=== PATIENT | female | born 1950 | race Caucasian/White ===

== ENCOUNTER 2020-06-02 06:03 | Outpatient (REF) | payer MEDICARE, SELFPAY ==
[2020-06-02 11:34] LABS: Alanine Aminotransferase 16 U/L (0-31); Anion Gap 13 (12-20); Aspartate Amino Transferase 19 U/L (5-31); Blood Urea Nitrogen 17 mg/dL (9-16); Calcium 9.3 mg/dL (8.4-10.2); Carbon Dioxide 28 mmol/L (22-29); Chloride 103 mmol/L (96-108); Cholesterol 188 mg/dL; Estimated Glomerular Filt Rate > 60; Glucose Fasting 87 mg/dL (60-99); HDL Cholesterol 47 mg/dL; LDL Cholesterol Calculated 120 mg/dl; Potassium 4.1 mmol/l (3.3-5.1); Sodium 140 mmol/L (135-145); Triglycerides 106 mg/dL
[2020-06-02 11:55] LABS: Vitamin D 25-OH Total 56.1 ng/mL (>30)
== END 2020-06-02 06:04 | disposition home or self-care (01) ==
LOC: HO.HMGCLDS 06:03
PROVIDERS: PCP Internal Medicine; Visit Provider Internal Medicine
DX: E78.5 Hyperlipidemia, unspecified (principal); I10 Essential (primary) hypertension; F41.9 Anxiety disorder, unspecified; E66.09 Other obesity due to excess calories; M85.80 Other specified disorders of bone density and structure, unspecified site; Z68.33 Body mass index [BMI] 33.0-33.9, adult
CPT/HCPCS: 80048; 80061; 82306; 84450; 84460

== ENCOUNTER 2020-06-17 08:58 | Outpatient (REF) | payer MEDICARE, SELFPAY ==
--- NOTE | 2020-06-17 09:05 | MM_ITS ---
EXAMINATION: BONE DENSITOMETRY CLINICAL INDICATION: Osteopenia. COMPARISON: Previous BD dated 06/15/2018 and baseline BD dated 03/12/2009. TECHNIQUE: Using a [employer] DXA System (software version: 13.1) manufactured by [employer], dual-energy x-ray absorptiometry was performed of the lumbar spine and left hip. The images are of good technical quality. Summary results are attached. FINDINGS: AP SPINE L1-L4: Current: BMD 1.278 g/cm2, Z-score 2.0, T-score 0.8, normal, 1.7% increase from previous, 5.3% increase from baseline (<5% change is not significant). Prior: BMD 1.257 g/cm2. Baseline: BMD 1.214 g/cm2. LEFT FEMUR, NECK: Current: BMD 0.780 g/cm2, Z-score -0.5, T-score -1.9, osteopenia. Prior: BMD 0.850 g/cm2. Baseline: BMD 0.877 g/cm2. LEFT FEMUR, TOTAL: Current: BMD 0.952 g/cm2, Z-score 0.7, T-score -0.4, normal, 0.4% increase from previous, 5.6% decrease from baseline (<5% change is not significant). Prior: BMD 0.948 g/cm2. Baseline: BMD 1.008 g/cm2. IDENTIFIED RISK FACTORS: Height loss, thiazide, menopause. HISTORY OF FRACTURE: None listed. MEDICATIONS: Multivitamin, Vitamin D. MM/XR DEXA axial skeleton IMPRESSION: 1. DIAGNOSIS: Osteopenia based on the lowest T-score value of -1.9 in the femoral neck applying World Health Organization criteria. 2. 10-YEAR FRACTURE RISK PREDICTION, FRAX: Major osteoporotic fracture (clinical spine, forearm, hip or shoulder) 10.5%. Hip fracture 1.8%. 3. Treatment Recommendations: NOF guidelines recommend consideration for treatment in postmenopausal women and men age 50 and older presenting with the following: -A hip or vertebral (clinical or morphometric) fracture. -T-score less than or equal to -2.5 at the femoral neck or spine after appropriate evaluation to exclude secondary causes. -Low bone mass at the hip or spine and a 10-year fracture probability by FRAX of greater than or equal to 3% for hip fracture or greater than or equal to 20% for major osteoporotic fracture based on the [place] adapted WHO algorithm. 4. Other Recommendations: All treatment decisions require clinical judgment and consideration of individual patient factors, including patient preferences, comorbidities, previous drug use, risk factors not captured in the FRAX model (e.g. frailty, falls, vitamin D deficiency, increased bone turnover, interval significant decline in bone density) and possible under or overestimation of fracture risk by FRAX. Additional medical evaluation for secondary cause of low bone mineral density may be appropriate. FUTURE SCAN RECOMMENDATION: People with diagnosed cases of osteoporosis or at high risk for fracture should have regular bone mineral density tests. For patients eligible for Medicare, routine testing is allowed once every 2 years. The testing frequency can be increased to one year for patients who have rapidly progressing disease, those who are receiving or discontinuing medical therapy to restore bone mass, or have additional risk factors.
--- NOTE | 2020-06-17 09:05 | MM_ITS ---
EXAMINATION: MM SCREENING DIGITAL BREAST TOMOSYNTHESIS, BILATERAL CLINICAL INFORMATION: Screening. Asymptomatic. The lifetime risk of breast cancer based on the Tyrer-Cuzick Model is 6.9%. COMPARISON: Mammography: June 16, 2019 and studies dating back to May 20, 2012 TECHNIQUE: Digital breast tomosynthesis is performed in both the craniocaudal and mediolateral oblique views along with computer-aided detection (CAD). Synthesized 2D images are generated from the tomosynthesis. FINDINGS: There are scattered areas of fibroglandular density (ACR BI-RADS breast composition Category b). There are no significant masses, abnormal calcifications, or other abnormalities. MM/MM tomosynthesis screening BI IMPRESSION: There are no significant changes from prior study. ASSESSMENT: BI-RADS 1: Negative RECOMMENDATION: Routine annual mammography screening. This patient's information was entered into a reminder system with a target due date for their next mammogram.
== END 2020-06-17 08:59 | disposition home or self-care (01) ==
LOC: HO.MAMMO 08:58
PROVIDERS: PCP Internal Medicine; Visit Provider Internal Medicine
DX: Z13.820 Encounter for screening for osteoporosis (principal); M85.80 Other specified disorders of bone density and structure, unspecified site; Z78.0 Asymptomatic menopausal state; Z79.899 Other long term (current) drug therapy; Z12.31 Encounter for screening mammogram for malignant neoplasm of breast
CPT/HCPCS: 77063; 77067; 77080

== ENCOUNTER 2020-11-28 06:01 | Outpatient (REF) | payer MEDICARE, SELFPAY ==
[2020-11-28 11:58] LABS: Alanine Aminotransferase 17 U/L (0-31); Anion Gap 14 (12-20); Aspartate Amino Transferase 20 U/L (5-31); Blood Urea Nitrogen 18 mg/dL (9-16); Calcium 9.4 mg/dL (8.4-10.2); Carbon Dioxide 30 mmol/L (22-29); Chloride 102 mmol/L (96-108); Cholesterol 230 mg/dL; Estimated Glomerular Filt Rate > 60; Glucose Fasting 88 mg/dL (60-99); HDL Cholesterol 50 mg/dL; LDL Cholesterol Calculated 152 mg/dl; Potassium 4.3 mmol/L (3.3-5.1); Sodium 142 mmol/L (135-145); Triglycerides 141 mg/dL
== END 2020-11-28 06:02 | disposition home or self-care (01) ==
LOC: HO.HMGCLDS 06:01
PROVIDERS: PCP Internal Medicine; Visit Provider Internal Medicine
DX: Z00.01 Encounter for general adult medical examination with abnormal findings (principal); E78.5 Hyperlipidemia, unspecified; F41.8 Other specified anxiety disorders; I10 Essential (primary) hypertension; M85.859 Other specified disorders of bone density and structure, unspecified thigh; Z78.0 Asymptomatic menopausal state
CPT/HCPCS: 36415; 80048; 80061; 82306; 84450; 84460

== ENCOUNTER 2021-06-02 06:01 | Outpatient (REF) | payer MEDICARE, SELFPAY ==
[2021-06-02 12:04] LABS: Alanine Aminotransferase 15 U/L (0-31); Anion Gap 11 (12-20); Aspartate Amino Transferase 20 U/L (5-31); Blood Urea Nitrogen 17 mg/dL (9-16); Calcium 9.5 mg/dL (8.4-10.2); Carbon Dioxide 29 mmol/L (22-29); Chloride 103 mmol/L (96-108); Cholesterol 194 mg/dL; Estimated Glomerular Filt Rate > 60; Glucose Fasting 88 mg/dL (60-99); HDL Cholesterol 46 mg/dL; LDL Cholesterol Calculated 107 mg/dl; Potassium 4.4 mmol/L (3.3-5.1); Sodium 139 mmol/L (135-145); Triglycerides 207 mg/dL
[2021-06-02 12:18] LABS: Vitamin D 25-OH Total 56.7 ng/mL (>30)
== END 2021-06-02 06:02 | disposition home or self-care (01) ==
LOC: HO.HMGCLDS 06:01
PROVIDERS: PCP Internal Medicine; Visit Provider Internal Medicine
DX: E78.5 Hyperlipidemia, unspecified (principal); F41.8 Other specified anxiety disorders; I10 Essential (primary) hypertension; M85.852 Other specified disorders of bone density and structure, left thigh; Z78.0 Asymptomatic menopausal state
CPT/HCPCS: 36415; 80048; 80061; 82306; 84450; 84460

== ENCOUNTER 2021-06-19 09:20 | Outpatient (REF) | payer MEDICARE, SELFPAY | END 2021-06-19 09:21 | disposition home or self-care (01) | LOC: HO.MAMMO 09:20 | PROVIDERS: Visit Provider Internal Medicine | DX: Z13.89 Encounter for screening for other disorder (principal) ==

== ENCOUNTER 2021-06-25 | Outpatient (REF) | payer MEDICARE, SELFPAY ==
[2021-06-26 12:00] LABS: FIT Int Ctl YES; FIT1 NEGATIVE (NEGATIVE); FIT2 NEGATIVE (NEGATIVE)
== END 2021-06-25 00:01 | disposition home or self-care (01) ==
LOC: HO.LNP
PROVIDERS: Visit Provider Internal Medicine
DX: Z12.11 Encounter for screening for malignant neoplasm of colon (principal)
CPT/HCPCS: 82274

== ENCOUNTER 2021-07-28 09:22 | Outpatient (REF) | payer MEDICARE, SELFPAY ==
--- NOTE | ~2021-07-28 | MM_ITS ---
EXAMINATION: MM SCREENING DIGITAL BREAST TOMOSYNTHESIS, BILATERAL CLINICAL INFORMATION: Screening. Asymptomatic. The lifetime risk of breast cancer based on the Tyrer-Cuzick Model is 4%. COMPARISON: Mammography: 06/17/2020, 06/16/2019, 06/15/2018 TECHNIQUE: Digital breast tomosynthesis is performed in both the craniocaudal and mediolateral oblique views along with computer-aided detection (CAD). Synthesized 2D images are generated from the tomosynthesis. FINDINGS: There are scattered areas of fibroglandular density (ACR BI-RADS breast composition Category b). Parenchymal pattern is similar to prior studies. There is fine fibronodular parenchymal pattern. No interval dominant nodule or developing density. Small circumscribed nodule with a few punctate calcifications anterior 6:00 left breast is stable. The axilla and skin contours are unremarkable. MM/MM tomosynthesis screening BI IMPRESSION: No mammographic evidence of malignancy. ASSESSMENT: BI-RADS 2: Benign RECOMMENDATION: Routine annual mammography screening. This patient's information was entered into a reminder system with a target due date for their next mammogram.
== END 2021-07-28 09:23 | disposition home or self-care (01) ==
LOC: HO.MAMMO 09:22
PROVIDERS: Visit Provider Internal Medicine
DX: Z12.31 Encounter for screening mammogram for malignant neoplasm of breast (principal)
CPT/HCPCS: 77063; 77067

== ENCOUNTER 2021-12-02 06:16 | Outpatient (REF) | payer MEDICARE, SELFPAY ==
[2021-12-02 12:13] LABS: Alanine Aminotransferase 17 U/L (0-31); Anion Gap 13 (12-20); Aspartate Amino Transferase 19 U/L (5-31); Blood Urea Nitrogen 14 mg/dL (9-16); Calcium 9.8 mg/dL (8.4-10.2); Carbon Dioxide 28 mmol/L (22-29); Chloride 104 mmol/L (96-108); Cholesterol 217 mg/dL; Estimated Glomerular Filt Rate > 60; Glucose Fasting 93 mg/dL (60-99); HDL Cholesterol 50 mg/dL; LDL Cholesterol Calculated 128 mg/dl; Potassium 4.7 mmol/L (3.3-5.1); Sodium 140 mmol/L (135-145); Triglycerides 196 mg/dL; Vitamin D 25-OH Total 58.7 ng/mL (>30)
== END 2021-12-02 06:17 | disposition home or self-care (01) ==
LOC: HO.HMGCLDS 06:16
PROVIDERS: PCP Internal Medicine; Visit Provider Internal Medicine
DX: Z00.01 Encounter for general adult medical examination with abnormal findings (principal); E78.5 Hyperlipidemia, unspecified; I10 Essential (primary) hypertension; M85.852 Other specified disorders of bone density and structure, left thigh; Z78.0 Asymptomatic menopausal state
CPT/HCPCS: 36415; 80048; 80061; 82306; 84450; 84460

== ENCOUNTER 2022-06-07 06:09 | Outpatient (REF) | payer MEDICARE, SELFPAY ==
[2022-06-07 12:32] LABS: Alanine Aminotransferase 16 U/L (0-31); Anion Gap 17 (12-20); Aspartate Amino Transferase 22 U/L (5-31); Blood Urea Nitrogen 15 mg/dL (9-16); Calcium 9.6 mg/dL (8.4-10.2); Carbon Dioxide 27 mmol/L (22-29); Chloride 101 mmol/L (96-108); Cholesterol 186 mg/dL; Estimated Glomerular Filt Rate > 60; Glucose Fasting 96 mg/dL (60-99); HDL Cholesterol 41 mg/dL; LDL Cholesterol Calculated 120 mg/dl; Potassium 4.5 mmol/L (3.3-5.1); Sodium 140 mmol/L (135-145); Triglycerides 126 mg/dL; Vitamin D 25-OH Total 50.6 ng/mL (>30)
== END 2022-06-07 06:10 | disposition home or self-care (01) ==
LOC: HO.HMGCLDS 06:09
PROVIDERS: PCP Internal Medicine; Visit Provider Internal Medicine
DX: I10 Essential (primary) hypertension (principal); M85.859 Other specified disorders of bone density and structure, unspecified thigh; N95.9 Unspecified menopausal and perimenopausal disorder; E78.5 Hyperlipidemia, unspecified
CPT/HCPCS: 36415; 80048; 80061; 82306; 84450; 84460

== ENCOUNTER 2022-07-29 09:06 | Outpatient (REF) | payer MEDICARE, SELFPAY ==
--- NOTE | ~2022-07-29 | MM_ITS ---
EXAMINATION: BONE DENSITOMETRY CLINICAL INDICATION: Other specified disorders of bone density and structure. COMPARISON: Previous BD dated 06/17/2020 and baseline BD dated 03/12/2009. TECHNIQUE: Using a [employer] DXA System (software version: 13.1) manufactured by [employer], dual-energy x-ray absorptiometry was performed of the lumbar spine and left hip. The images are of good technical quality. Summary results are attached. FINDINGS: AP SPINE L1-L4 (excluding L3): The data of L1-L4 has been changed to exclude the L3 vertebral body, because degenerative changes at this level may cause overestimation of lumbar spine density. Current: BMD 1.204 g/cm2, Z-score 1.4, T-score 0.3, normal, 2.4% decrease from previous, 1.7% increase from baseline (<5% change is not significant). Prior: BMD 1.234 g/cm2. Baseline: BMD 1.184 g/cm2. LEFT FEMUR, NECK: Current: BMD 0.817 g/cm2, Z-score -0.2, T-score -1.6, osteopenia. Prior: BMD 0.780 g/cm2. Baseline: BMD 0.877 g/cm2. LEFT FEMUR, TOTAL: Current: BMD 0.895 g/cm2, Z-score 0.3, T-score -0.9, normal, 6.0% decrease from previous, 11.2% decrease from baseline (<5% change is not significant). Prior: BMD 0.952 g/cm2. Baseline: BMD 1.008 g/cm2. IDENTIFIED RISK FACTORS: Early menopause, secondary osteoporosis, low calcium intake, thiazide. HISTORY OF FRACTURE: None listed. MEDICATIONS: Calcium supplements or multivitamin, vitamin D. MM/XR DEXA axial skeleton IMPRESSION: 1. DIAGNOSIS: Osteopenia based on the lowest T-score value of -1.6 in the femoral neck applying World Health Organization criteria. 2. 10-YEAR FRACTURE RISK PREDICTION, FRAX: Major osteoporotic fracture (clinical spine, forearm, hip or shoulder) 10.0%. Hip fracture 1.6%. 3. Treatment Recommendations: NOF guidelines recommend consideration for treatment in postmenopausal women and men age 50 and older presenting with the following: -A hip or vertebral (clinical or morphometric) fracture. -T-score less than or equal to -2.5 at the femoral neck or spine after appropriate evaluation to exclude secondary causes. -Low bone mass at the hip or spine and a 10-year fracture probability by FRAX of greater than or equal to 3% for hip fracture or greater than or equal to 20% for major osteoporotic fracture based on the [place] adapted WHO algorithm. 4. Other Recommendations: All treatment decisions require clinical judgment and consideration of individual patient factors, including patient preferences, comorbidities, previous drug use, risk factors not captured in the FRAX model (e.g. frailty, falls, vitamin D deficiency, increased bone turnover, interval significant decline in bone density) and possible under or overestimation of fracture risk by FRAX. Additional medical evaluation for secondary cause of low bone mineral density may be appropriate. FUTURE SCAN RECOMMENDATION: People with diagnosed cases of osteoporosis or at high risk for fracture should have regular bone mineral density tests. For patients eligible for Medicare, routine testing is allowed once every 2 years. The testing frequency can be increased to one year for patients who have rapidly progressing disease, those who are receiving or discontinuing medical therapy to restore bone mass, or have additional risk factors.
--- NOTE | ~2022-07-29 | MM_ITS ---
EXAMINATION: MM SCREENING DIGITAL BREAST TOMOSYNTHESIS, BILATERAL CLINICAL INFORMATION: Screening. Asymptomatic. The lifetime risk of breast cancer based on the Tyrer-Cuzick Model is 3.5%. COMPARISON: Mammography: July 28, 2021 and studies dating back to June 11, 2016 TECHNIQUE: Digital breast tomosynthesis is performed in both the craniocaudal and mediolateral oblique views along with computer-aided detection (CAD). Synthesized 2D images are generated from the tomosynthesis. FINDINGS: There are scattered areas of fibroglandular density (ACR BI-RADS breast composition Category b). There are no significant masses, abnormal calcifications, or other abnormalities. MM/MM tomosynthesis screening BI IMPRESSION: No significant changes from prior exam. ASSESSMENT: BI-RADS 1: Negative RECOMMENDATION: Routine annual mammography screening. This patient's information was entered into a reminder system with a target due date for their next mammogram.
== END 2022-07-29 09:07 | disposition home or self-care (01) ==
LOC: HO.MAMMO 09:06
PROVIDERS: Visit Provider Internal Medicine
DX: Z12.31 Encounter for screening mammogram for malignant neoplasm of breast (principal); Z13.820 Encounter for screening for osteoporosis; Z78.0 Asymptomatic menopausal state; M85.852 Other specified disorders of bone density and structure, left thigh
CPT/HCPCS: 77063; 77067; 77080

== ENCOUNTER 2022-12-03 06:07 | Outpatient (REF) | payer MEDICARE, SELFPAY ==
[2022-12-03 12:23] LABS: Alanine Aminotransferase 17 U/L (0-31); Anion Gap 17 (12-20); Aspartate Amino Transferase 18 U/L (5-31); Blood Urea Nitrogen 13 mg/dL (9-16); Calcium 9.6 mg/dL (8.4-10.2); Carbon Dioxide 27 mmol/L (22-29); Chloride 105 mmol/L (96-108); Cholesterol 210 mg/dL; Estimated Glomerular Filt Rate > 60; Glucose Fasting 98 mg/dL (60-99); HDL Cholesterol 40 mg/dL; LDL Cholesterol Calculated 139 mg/dl; Potassium 5.2 mmol/L (3.3-5.1); Sodium 144 mmol/L (135-145); Triglycerides 158 mg/dL
[2022-12-03 12:42] LABS: Vitamin D 25-OH Total 60.8 ng/mL (>30)
== END 2022-12-03 06:08 | disposition home or self-care (01) ==
LOC: HO.HMGCLDS 06:07
PROVIDERS: PCP Internal Medicine; Visit Provider Internal Medicine
DX: M85.852 Other specified disorders of bone density and structure, left thigh (principal); E78.5 Hyperlipidemia, unspecified; I10 Essential (primary) hypertension; N95.9 Unspecified menopausal and perimenopausal disorder
CPT/HCPCS: 36415; 80048; 80061; 82306; 84450; 84460

== ENCOUNTER 2023-06-08 06:14 | Outpatient (REF) | payer MEDICARE, SELFPAY ==
[2023-06-08 11:43] LABS: MANUAL DIFF FLAG NO
[2023-06-08 12:03] LABS: Basophils Absolute Auto 0.1 X10*3/uL (0.0-0.2); Eosinophils Absolute Auto 0.2 X10*3/uL (0.0-0.4); Eosinophils Percent Auto 2.2 % (0-4); Hematocrit 40.9 % (37.0-47.0); Hemoglobin 13.7 g/dl (12.0-16.0); Imm Gran Abs Auto 0.01 X10*3/uL (0.00-0.03); Imm Gran Pct Auto 0.1 % (0.0-0.4); Lymphocytes Absolute Auto 1.3 X10*3/uL (1.2-4.9); Lymphocytes Percent Auto 19.2 % (20-40); Mean Corpuscular HGB Conc 33.5 g/dl (31.0-35.0); Mean Corpuscular Hemoglobin 30.7 pg (27.0-33.0); Mean Corpuscular Volume 91.7 fL (80.0-98.0); Mean Platelet Volume 8.9 fL (9.4-12.3); Monocytes Absolute Auto 0.7 X10*3/uL (0.1-1.2); Monocytes Percent Auto 10.4 % (2-11); Neutrophils Absolute Auto 4.5 x10*3/uL (2.0-8.3); Neutrophils Percent Auto 67.1 % (45-73); Platelet Count 274 X10*3/uL (160-400); Red Blood Count 4.46 X10*6/uL (4.20-5.50); Red Cell Distribution Width 12.1 % (11.0-16.0); White Blood Count 6.8 X10*3/uL (4.8-10.8)
[2023-06-08 12:52] LABS: Anion Gap 17 (12-20); Blood Urea Nitrogen 14 mg/dL (9-16); Carbon Dioxide 28 mmol/L (22-29); Chloride 95 mmol/L (96-108); Cholesterol 206 mg/dL (<200); Estimated Glomerular Filt Rate > 60; Glucose Fasting 97 mg/dL (60-99); HDL Cholesterol 52 mg/dL (>40); LDL Cholesterol Calculated 123 mg/dL (<100); Potassium 4.5 mmol/L (3.3-5.1); Sodium 135 mmol/L (135-145); Triglycerides 159 mg/dL (<150); Vitamin D 25-OH Total 65.1 ng/mL (>30)
== END 2023-06-08 06:15 | disposition home or self-care (01) ==
LOC: HO.HMGCLDS 06:14
PROVIDERS: PCP Internal Medicine; Visit Provider Internal Medicine
DX: M85.859 Other specified disorders of bone density and structure, unspecified thigh (principal); E78.5 Hyperlipidemia, unspecified; I10 Essential (primary) hypertension; F41.8 Other specified anxiety disorders; Z78.0 Asymptomatic menopausal state
CPT/HCPCS: 36415; 80048; 80061; 82306; 85025

== ENCOUNTER 2023-07-14 08:45 | Outpatient (AMB) | payer MEDICARE, SELFPAY ==
--- NOTE | 2023-07-14 09:02 | A.OFFPC_ITS ---
<Statement entered by Janis Almaraz MD - 12/19/24 15:27> This note has been administratively?closed. Vital Signs 07/14/23 09:04 Height 5 ft 1 in Weight 174 lb 8 oz BMI 33.0 BP 148/86 H Blood Pressure Location Lt brachial Position Sitting Pulse 89 Pulse Source Pulse Oximeter Pulse Oximetry (%) 98 Oxygen Delivery Method Room Air Intake Visit Reasons: Annual Physical Intake Note: Pt is here for her Annual PE Allergies lisinopril [LISINOPRIL] Allergy (Intermediate, Verified 07/14/23 09:07) cough Polyethylene Glycol 3350 Adverse Reaction (Unknown, Uncoded 07/14/23 09:07) nausea and vomiting Tobacco use date assessed: 07/14/23 Fall risk assessment: 1 Fall in past year Last assessed Fall Risk: 07/14/23 Dental Screening Dental Screen Date: 07/14/23 Did you have a dental visit in the last 12 months?: Yes Did you have a dental problem in the last 6 months where you did not have access to dental care?: No Was dental information given to patient?: Patient has dentist [facility] Medical History Depression with anxiety Dyslipidemia Essential hypertension Osteopenia of hip Surgical History No pertinent past surgical history Family History Father HTN (hypertension) CHF (congestive heart failure) Hyperlipidemia Mother Renal cell cancer Sister Alcoholism Cirrhosis Substance use disorder Social History Housing: House Alcohol intake: current Patient Tobacco Use Status: Never used Tobacco e-Cigarette/Vaping Use: Never Used Current occupational status: retired Cognitive needs: No Hearing needs: No Vision needs: Yes Questionnaire Thrive Questionnaire Date Thrive assessed: 06/14/22 YOLI-7 AMB Questionnaire YOLI-7 Date YOLI - 7 assessed: 12/10/22 Source: Developed by Drs. Edison Alcantara, Loren Romo, Ronaldo Moore and colleagues, with an educational aspen from [employer]. Review of Systems Const Denies body aches, Reports difficulty sleeping (Occasional), Denies fatigue, Denies fever(s), Denies headache(s) and Denies weakness Eyes Details: Sees Dr. Manning Denies change in vision, Denies eye discharge and Denies itchy eyes ENT Reports Normal hearing present, Denies dizziness, Denies headache(s), Denies nasal congestion, Denies nasal discharge and Denies sore throat Card Denies chest pain, Denies lightheadedness, Denies palpitations and Denies dyspnea Resp Denies chest congestion, Denies cough, Denies dyspnea and Denies wheezing GI Denies abdominal pain, Denies change in bowel habits and Denies heartburn Musc Denies myalgias, Denies arthralgias, Denies joint swelling and Reports stiffness Neuro Reports Normal hearing present, Denies dizziness, Denies headache(s), Denies Sensory deficit (Neuro) and Denies weakness Psych Reports as per HPI Endo Denies fatigue, Denies polydipsia, Denies polyuria and Denies palpitations Oj/Lymph Denies easy bruising Aller/Immun Denies itchy eyes, Denies seasonal rhinorrhea and Denies wheezing Physical exam (Primary Care) Vital Signs: Last Vital Signs Pulse 89 07/14/23 09:04 BP 148/86 H 07/14/23 09:04 Pulse Ox 98 07/14/23 09:04 Oxygen Delivery Method Room Air 07/14/23 09:04 BMI result Body Mass Index 33.0 BMI Assessment/Plan discussion: High BMI High, discussed plan: lifestyle, weight reduction, dietary and physical activity Tobacco/Smoking Status: Tobacco use Status Tobacco use date assessed 07/14/23 07/14/23 09:11 Patient Tobacco Use Status Never used Tobacco 07/14/23 09:02 e-Cigarette/Vaping Use Never Used 07/14/23 09:02 Thrive Assessment: Date of Thrive Assessment Date Thrive assessed 06/14/22 07/14/23 09:02 Advance Care Planning discussion: On file, no changes Date of discussion: 07/14/23 Who was present: Patient Forms completed: MOLST Time spent: 1-15 minutes, on File Actual minutes spent: 15 Const General: comfortable and no acute distress HENMT Mouth: Normal oral and palatal mucosa present, oropharynx normal and moist mucous membranes Eyes General: appearance normal, both eyes and all related structures Neck Neck: Yes full ROM, Yes no lymphadenopathy and Yes supple Resp Auscultation: clear to auscultation bilaterally Cardio Rate: regular rate Rhythm: regular rhythm Heart sounds: S1 normal heart sound present and S2 normal heart sound present GI Palpation (GI): Soft to palpation, nontender and no guarding Auscultation: normal bowel sounds General: Yes no CVA tenderness Back/Spine/Pelvis Back: no CVA tenderness and No back tenderness Neuro Cranial nerves: Yes Normal hearing present Sensory Exam: No Sensory deficit (Neuro) Extrem General: Yes full ROM, Yes no joint enlargement, Yes no pedal edema and Yes normal gait Psych Appearance: grossly normal and well kempt Mental Status: mental status grossly normal Speech and movement: Normal speech and movement present Affect: normal affect Attitude: cooperative Thought content: Normal thought content present Results Reviewed Results Reviewed: ENTERED: 06/08/23 [facility] DR: ORDERED: CBC Auto Diff Test Result Flag Reference Site WBC 6.8 4.8-10.8 X10*3/uL RBC 4.46 4.20-5.50 X10*6/uL HGB 13.7 12.0-16.0 g/dl HCT 40.9 37.0-47.0 % MCV 91.7 80.0-98.0 fL MCH 30.7 27.0-33.0 pg MCHC 33.5 31.0-35.0 g/dl RDW 12.1 11.0-16.0 % PLT 274 160-400 X10*3/uL SPEC : [id number] RAMSEY: 06/08/23 STATUS: COMP REQ : [id number] RECD: 06/08/[address]: Janis Almaraz MD COMP: 06/08/23 ENTERED: 06/08/23 [facility] [address]: ORDERED: Met Prof Fast, Lipid Panel, Vitamin D 25-OH Test Result Flag Reference Site Sodium 135 135-145 mmol/L Potassium 4.5 3.3-5.1 mmol/L CL 95 L 96-108 mmol/L CO2 28 22-29 mmol/L Gap 17 12-20 BUN 14 9-16 mg/dL Creat 0.84 0.5-1.4 mg/dL EGFR > 60 NOTE: For -[place] individuals, multiply the result by 1.210. Chronic Kidney Disease: Estimated GFR < 60 mL/min/1.73m2 Severe Kidney Disease: Estimated GFR < 15 mL/min/1.73m2 FBS 97 60-99 mg/dL CA 10.0 8.4-10.2 mg/dL Triglyceride 159 H <150 mg/dL Desirable Triglyceride: less than 150 mg/dL Borderline High Triglyceride 150-199 mg/dL High Triglyceride: 200-499 mg/dL Very High Triglyceride: greater than or equal to 5OO mg/dL Cholesterol 206 H <200 mg/dL Desirable Cholesterol: less than 200 mg/dL Borderline High Cholesterol: 200-239 mg/dL High Cholesterol: greater than 239 mg/dL LDL Calculated 123 H <100 mg/dL Desirable LDL: less than 100 mg/dL Near Optimal/Above Optimal LDL: 110-129 mg/dL Borderline High LDL: 130-159 mg/dL High LDL: 160-189 mg/dL Very High LDL: greater than or equal to 190 mg/dL HDL 52 >40 mg/dL Desirable HDL: greater than 40 mg/dL Note: This HDL assay may give artificially low results in patients with liver disease. Vit D 25-OH Tot 65.1 >30 ng/mL Health Based Reference Values* < 20 ng/mL Deficient 20-30 ng/mL Insufficient > 30 ng/mL Sufficient Assessment and Plan Assessment & Plan (1) Annual visit for general adult medical examination with abnormal findings: Code(s): Z00.01 - Encounter for general adult medical examination with abnormal findings Plan: Reviewed recent fasting labs with patient.. Continue rectal dental visit every 6 months and regular eye exams, at least every 2 years, sees Dr. Manning. Take adequate calcium in diet and vitamin-D 3 at 2000 IU per cap once a day, in addition to weight-bearing exercises to help maintain good muscle tone and weight control. Instructed to do self-breast exam, and continue with yearly mammogram, and will get another bone density scan next year. She is up-to-date with all her vaccinations, but does not want to get RSV vaccine. She is also up-to-date with her colon cancer screening, had a negative Cologuard done 2021 (2) Osteopenia of hip: Code(s): M85.859 - Other specified disorders of bone density and structure, unspecified thigh Qualifiers: Laterality: left Qualified Code(s): M85.852 - Other specified disorders of bone density and structure, left thigh Plan: Continue doing regular weight-bearing exercises, she walks 2 miles a day, continue taking vitamin-D 3 supplements and adequate calcium from dietary sources. Will recheck another bone density scan in 2023 (3) Dyslipidemia: Code(s): E78.5 - Hyperlipidemia, unspecified Plan: Reviewed recent fasting lipid profile with patient with mildly elevated tri glycerides with normal LDL cholesterol and HDL cholesterol be . Continue with Alcove 3 fatty acids and rosuvastatin 10 mg daily , in addition to adherence to low-cholesterol diet and regular exercise, at least 30 minutes 3 to 4 times a week. Advised patient to make healthy food choices, eat more fruits, vegetables, whole grains, wild caught fish and low-fat dairy. Limit amount of meat and fried or fatty food products, as well as processed foods and fast foods. Follow-up scheduled with repeat fasting lipid panel in 6 months. (4) Essential hypertension: Comment: ff'd by Dr Vigil/ Dr lopez Code(s): I10 - Essential (primary) hypertension Plan: Followed by Nephrology, blood pressure stable controlled on amlodipine and hydrochlorothiazide reinforced importance of following a low-salt diet (5) Depression with anxiety: Code(s): F41.8 - Other specified anxiety disorders Plan: Stable and controlled on escitalopram 5 mg taken once a day Orders: Orders Lipid Panel 12/14/23 E78.5 - Hyperlipidemia, unspecified, I10 - Essential (primary) hypertension, M85.859 - Other specified disorders of bone density and structure, unspecified thigh, Z78.0 - Asymptomatic menopausal state Alanine Aminotransferase 12/14/23 E78.5 - Hyperlipidemia, unspecified, I10 - Essential (primary) hypertension, M85.859 - Other specified disorders of bone density and structure, unspecified thigh, Z78.0 - Asymptomatic menopausal state Vitamin D 25-OH Total 12/14/23 E78.5 - Hyperlipidemia, unspecified, I10 - Essential (primary) hypertension, M85.859 - Other specified disorders of bone density and structure, unspecified thigh, Z78.0 - Asymptomatic menopausal state Aspartate Amino Transferase 12/14/23 E78.5 - Hyperlipidemia, unspecified, I10 - Essential (primary) hypertension, M85.859 - Other specified disorders of bone density and structure, unspecified thigh, Z78.0 - Asymptomatic menopausal state Basic Metabolic Panel Fasting 12/14/23 E78.5 - Hyperlipidemia, unspecified, I10 - Essential (primary) hypertension, M85.859 - Other specified disorders of bone density and structure, unspecified thigh, Z78.0 - Asymptomatic menopausal state Coding Level of Care Code Est Pt Prev Care >65y(94076) Diagnoses Annual visit for general adult medical examination with abnormal findings Z00.01 Osteopenia of left hip M85.852 Laterality: left Dyslipidemia E78.5 Essential hypertension I10 Depression with anxiety F41.8 Additional Codes Vital Signs *Quality* - Advance Care Planning discussion: On file, no changes ([id number]) Vital Signs *Quality* - Time spent: 1-15 minutes, on File ([id number])
[2023-07-14 09:04] VITALS: BP 148/86; PULSE 89; O2SAT 98; BMI 33.0
== END 2023-07-14 10:11 | disposition home or self-care (01) ==
PROVIDERS: PCP Internal Medicine; Visit Provider Internal Medicine
DX: Z00.01 Encounter for general adult medical examination with abnormal findings (principal); M85.852 Other specified disorders of bone density and structure, left thigh; E78.5 Hyperlipidemia, unspecified; I10 Essential (primary) hypertension; F41.8 Other specified anxiety disorders; Z00.00 Encounter for general adult medical examination without abnormal findings
CPT/HCPCS: 99499